=== PATIENT | female | born 1990 | race Caucasian/White ===

== ENCOUNTER 2016-12-03 21:27 | Emergency (ER) | payer BC, MEDICAID ==
[~2016-12-03] VITALS: Ht 160 cm; Wt 116.0 kg
[~2016-12-03 21:27] MED LIST: No Home Medications; TRAZ50TA11 PO; ZOLO50TA PO
[2016-12-03] MEDS ORDERED: PRENCHW PO (21:38)
[2016-12-03 22:52] LABS: BASO # 0.1 10^3/uL (0.0-0.2); BASO % 0.7 % (0.0-1.0); EOS # 0.4 10^3/uL (0.0-0.50); EOS % 3.3 % (0.0-3.0); IMMATURE GRANULOCYTE % 0.4 % (0-0); LYMPH # 2.9 10^3/uL (1.5-6.5); MEAN CORPUSCULAR HEMOGLOBIN 28.6 pg (27.0-33.0); MEAN CORPUSCULAR HGB CONC 32.8 g/dl (32.0-36.5); MEAN CORPUSCULAR VOLUME 87.2 fl (80.0-96.0); MONO # 0.8 10^3/uL (0.0-0.8); MONO % 7.6 % (0.0-5.0); NEUTROPHILS # 6.6 10^3/uL (1.8-7.7); PLATELET COUNT, AUTOMATED 266 10^3/uL (150-450); RED CELL DISTRIBUTION WIDTH 13.7 % (11.5-14.5); WHITE BLOOD COUNT 10.9 10^3/uL (4.0-10.0)
[2016-12-04 00:10] VITALS: BP 152/94
--- NOTE | 2016-12-04 00:20 | REPUSA ---
CLINICAL HISTORY: determination. TECHNIQUE: Transabdominal ultrasound of the pelvis was performed. FINDINGS: Single, live intrauterine gestation. The estimated gestation age is 6 weeks and 3 days based on a pole measurement measuring 6 mm. heart rate was documented 124 beats per minute. No subchorionic hemorrhage is identified. Evaluation of the maternal adnexal and cul-de-sac regions revealed no abnormalities. Estimated gestational age is 6 weeks and 3 days. Estimated delivery date is 07/26/2017. IMPRESSION: Single, live intrauterine gestation.
== END 2016-12-04 00:14 | disposition home or self-care (01) ==
LOC: M ED 21:27
DX: O20.8 Other hemorrhage in early pregnancy (principal); Z3A.01 Less than 8 weeks gestation of pregnancy; Z79.899 Other long term (current) drug therapy

== ENCOUNTER 2018-04-12 22:15 | Emergency (ER) | payer BC, MEDICAID ==
[~2018-04-12] VITALS: Ht 162.6 cm; Wt 104.5 kg
[~2018-04-12 22:15] MED LIST changes: +PRENCHW PO; +TRAZ-160 PO; -TRAZ50TA11 PO
[2018-04-13 02:00] VITALS: BP 139/91
[2018-04-13 02:22] LABS: APPEARANCE, URINE CLEAR (CLEAR); BACTERIA, URINE AUTO NEGATIVE (NEGATIVE); BILIRUBIN, URINE AUTO NEGATIVE (NEGATIVE); BLOOD, URINE BLOOD NEGATIVE (NEGATIVE); COLOR, URINE YELLOW (YELLOW); GLUCOSE, URINE (UA) AUTO NEGATIVE (NEGATIVE); KETONE, URINE AUTO 1+ mg/dL (NEGATIVE); LEUKOCYTE ESTERASE, URINE AUTO NEGATIVE (NEGATIVE); MUCUS, URINE SMALL (NEGATIVE); NITRITE, URINE AUTO NEGATIVE (NEGATIVE); PROTEIN, URINE AUTO NEGATIVE (NEGATIVE); RBC, URINE AUTO 1 /HPF (0-3); SQUAMOUS EPITHELIAL CELL UR AU 0 /HPF (0-6); WBC, URINE AUTO 2 /HPF (0-3)
--- NOTE | 2018-04-13 09:05 | REP ---
PELVIC AND ENDOVAGINAL PROBE ULTRASOUND: 04/12/2018. Clinical history: Pelvic pain. IUD in place. Question displacement. Right-sided pain, possible cyst or other. Findings: Transabdominal and endovaginal probe images were obtained. There are no prior studies. Bladder is minimally filled. Uterus anteverted measuring 7.6 x 4.3 x 7.4 cm. Transabdominal and endovaginal probes show the endometrial stripe with normal thickness. There is an IUD in the endometrial cavity in the body and lower fundus of the uterus. No uterine mass or contour abnormality. The right ovary is 3.8 x 2.7 x 2.6 cm. There is no mass, cyst or adjacent fluid. Doppler tracing shows resistive index of 0.67 and normal color flow visible in that ovary. The left ovary measures 4.1 x 2 x 2.1 cm. There is no mass or cyst visible. There is also normal Doppler blood flow with resistive index of 0.69. Normal color flow as well. Impression: 1. Uterus and ovaries unremarkable. The endometrium shows no abnormality with an IUD visible in the lower fundus and body of the uterus. A portion of the endometrial cavity. 2. Ovaries normal in size and without mass, cyst or adjacent free fluid. Doppler tracing and color flow normal to both ovaries, no torsion. 3. Wet reading provided by Dr. Ayoub of our teleradiology service at the time of the examination. Electronically Signed by Chava Yuen MD 04/13/2018 07:24 P
== END 2018-04-13 02:11 | disposition left against medical advice (07) ==
LOC: M ED 22:15
DX: R10.31 Right lower quadrant pain (principal); F33.9 Major depressive disorder, recurrent, unspecified; F41.9 Anxiety disorder, unspecified; E66.9 Obesity, unspecified; Z97.5 Presence of (intrauterine) contraceptive device

== ENCOUNTER 2018-06-10 21:58 | Emergency (ER) | payer MEDICAID, OTHER ==
[~2018-06-10] VITALS: Ht 160 cm; Wt 102.3 kg
[2018-06-10 21:59] VITALS: BP 139/92
[2018-06-10] MEDS ORDERED: FLUORESCEIN OPHTH 1 MG STRIP OS ONE (22:30)
[2018-06-10] MEDS ORDERED: TETRACAINE 0.5% OPHTH SOLN 4ML OS ONE (22:30)
[2018-06-10] MEDS ORDERED: GENTAMICIN 0.3% OPHTH OINT 3.5 GM OS ONE (22:45)
[2018-06-10] MEDS ORDERED: GENT0.3O15 OS (23:05)
[2018-06-10] MEDS ORDERED: ERYT1OIN26 OS (23:12)
[2018-06-10] MEDS ORDERED: ERYTHROMYCIN OPHTH OINT OS ONE (23:15)
[2018-06-14 12:29] LABS: HEPATITIS B SURFACE ANTIBODY NEGATIVE (POSITIVE); HEPATITIS B SURFACE ANTIGEN NEGATIVE (NEGATIVE)
== END 2018-06-10 23:23 | disposition home or self-care (01) ==
LOC: M ED 21:58
DX: S05.02XA Injury of conjunctiva and corneal abrasion without foreign body, left eye, initial encounter (principal); Y04.8XXA Assault by other bodily force, initial encounter; Y92.199 Unspecified place in other specified residential institution as the place of occurrence of the external cause; Y93.F9 Activity, other caregiving; Y99.0 Civilian activity done for income or pay; F17.210 Nicotine dependence, cigarettes, uncomplicated; Z20.5 Contact with and (suspected) exposure to viral hepatitis

== ENCOUNTER 2018-09-13 16:59 | Emergency (ER) | payer OTHER, SELFPAY ==
[~2018-09-13] VITALS: Ht 160 cm; Wt 104.5 kg
[~2018-09-13 16:59] MED LIST changes: +ERYT1OIN26 OS; +GENT0.3O15 OS; -TRAZ-160 PO; +TRAZ-252 PO
[2018-09-13] MEDS ORDERED: IBUP-1114 PO (17:14)
[2018-09-13] MEDS ORDERED: MACR100C43 PO (19:20)
[2018-09-13] MEDS ORDERED: PYRI1TAB5 PO (19:20)
[2018-09-13 19:21] VITALS: BP 129/80
[2018-09-13] MEDS ORDERED: NITROFURANTOIN (MACROBID) 100 MG CAP PO ONE (19:30)
[2018-09-13] MEDS ORDERED: PHENAZOPYRIDINE 100 MG TAB PO ONE (19:30)
--- NOTE | 2018-09-14 09:27 | REP ---
PELVIC ULTRASOUND: Real-time sonographic evaluation of the pelvis performed utilizing transabdominal and endovaginal technique. The bladder is collapsed and empty. Uterus measures 9.0 x 4.5 x 6.4 cm. Endometrial thickness is approximately 6 mm maximally. IUD is seen in the endometrial canal. There is no endometrial fluid collection. The ovaries are normal in size and echotexture, right ovary measuring 4.1 x 2.2 x 2.4 cm and left ovary 3.4 x 2.7 x 2.1 cm. There is no adnexal mass or free fluid. There is no torsion of either ovary. IMPRESSION: IUD in the endometrial canal. No other abnormality. Preliminary report provided by [facility] at the time of the exam. Electronically Signed by Cong Alvarado MD 09/14/2018 12:42 P
== END 2018-09-13 19:30 | disposition home or self-care (01) ==
LOC: M ED 16:59
DX: N30.00 Acute cystitis without hematuria (principal); R10.32 Left lower quadrant pain; Z97.5 Presence of (intrauterine) contraceptive device

== ENCOUNTER 2018-09-14 08:32 | Emergency (ER) | payer SELFPAY ==
[~2018-09-14] VITALS: Ht 160 cm; Wt 107.6 kg
[~2018-09-14 08:32] MED LIST changes: +IBUP-1114 PO; +MACR100C43 PO; +PYRI1TAB5 PO
[2018-09-14 09:17] LABS: BASO % 0.4 % (0.0-1.0); EOS # 0.2 10^3/uL (0.0-0.50); EOS % 1.8 % (0.0-3.0); HEMATOCRIT 41.5 % (36.0-47.0); HEMOGLOBIN 13.7 g/dl (12.0-15.5); LYMPH # 1.1 10^3/uL (1.5-6.5); LYMPH % 10.4 % (24.0-44.0); MEAN CORPUSCULAR HEMOGLOBIN 29.3 pg (27.0-33.0); MEAN CORPUSCULAR VOLUME 88.9 fl (80.0-96.0); MONO # 0.6 10^3/uL (0.0-0.8); MONO % 5.4 % (0.0-5.0); NEUTROPHILS # 8.9 10^3/uL (1.8-7.7); NEUTROPHILS % 81.7 % (36.0-66.0); PLATELET COUNT, AUTOMATED 203 10^3/uL (150-450); RED BLOOD COUNT 4.67 10^6/uL (4.00-5.40); WHITE BLOOD COUNT 10.9 10^3/uL (4.0-10.0)
[2018-09-14 09:54] LABS: BLOOD UREA NITROGEN 9 MG/DL (7-18); CALCIUM LEVEL 8.9 MG/DL (8.5-10.1); CARBON DIOXIDE LEVEL 26 MEQ/L (21-32); CHLORIDE LEVEL 108 MEQ/L (98-107); CREATININE FOR GFR 0.83 MG/DL (0.55-1.30); GLOMERULAR FILTRATION RATE > 60.0 (>60); GLUCOSE, FASTING 103 MG/DL (70-100); POTASSIUM SERUM 3.9 MEQ/L (3.5-5.1); SODIUM LEVEL 140 MEQ/L (136-145)
--- NOTE | 2018-09-14 10:11 | REP ---
CT ABDOMEN AND PELVIS WITHOUT CONTRAST: CT abdomen and pelvis was performed without oral or IV contrast. Sagittal and coronal reconstruction images are performed. Visualized lung bases are clear. Liver, spleen, adrenals, pancreas and kidneys are grossly unremarkable. There is no renal ureteral or bladder calculus. There is no hydroureteronephrosis. There appear to be gallstones in the gallbladder without definite pericholecystic edema. There is no abdominal aortic aneurysm. There is no adenopathy. There is no free air or free fluid. No bowel wall thickening is seen. There is no evidence of appendicitis. No pelvic mass is seen. IUD is seen in the uterus. IMPRESSION: No evidence of renal, ureteral or bladder calculus. There is no hydroureteronephrosis. No evidence of appendicitis. There appear to be gallstones in the gallbladder without definite gallbladder wall inflammation of pericholecystic edema. IUD is seen in the uterus. Electronically Signed by Cong Alvarado MD 09/14/2018 12:44 P
[2018-09-14 10:29] VITALS: BP 136/93
== END 2018-09-14 10:34 | disposition home or self-care (01) ==
LOC: M ED 08:32
DX: N39.0 Urinary tract infection, site not specified (principal); K80.20 Calculus of gallbladder without cholecystitis without obstruction; Z97.5 Presence of (intrauterine) contraceptive device

== ENCOUNTER → 2020-09-23 | Outpatient (CLI) | payer OTHER ==
[~2020-09-23] MED LIST changes: -ERYT1OIN26 OS; +ERYT5OIN25 OS
== END ==
LOC: M RAD 13:53
PROVIDERS: ATTEND Physician Assistant Medical
DX: Z97.5 Presence of (intrauterine) contraceptive device (principal)

== ENCOUNTER → 2020-11-18 | Outpatient (REF) ==
[2020-11-18 15:19] LABS: RSV AMPLIFICATION NEGATIVE (NEGATIVE)
== END ==
LOC: M EMP 13:21
PROVIDERS: ATTEND Family Medicine
DX: Z20.822 Contact with and (suspected) exposure to COVID-19 (principal)

== ENCOUNTER 2020-11-19 11:19 | Outpatient (CLI) | payer OTHER ==
[~2020-11-19] VITALS: Ht 160 cm; Wt 108.9 kg
[~2020-11-19 11:19] MED LIST changes: +ACETAMINOPHEN TAB 650MG DOSE (2X325MG) PO ONE; +ACETAMINOPHEN TAB 650MG DOSE (2X325MG) PO PRN; +ALBUTEROL 90 MCG/ACT 8GM HFA INHALER INH PRN; +ALBUTEROL SULFATE 2.5 MG/0.5 ML INH NEB SOLN INH PRN; +CASIRIVIMAB/IMDEVIMAB 1,200 MG in NS 250 ML IV ONE; +EPINEPHrine INJ 1 MG/ML 1ML AMP IM PRN; +NS 1,000 ML IV SCH; +diphenhydrAMINE 50MG CAP PO ONE; +diphenhydrAMINE 50MG/ML VIAL (J1200) IV PRN; +methylPREDNISolone 125MG 2ML VIAL IV ONE; +methylPREDNISolone 125MG 2ML VIAL IV PRN
--- NOTE | 2020-11-19 12:01 | IPN ---
PROGRESS NOTE DATE: 11/19/2020 SUBJECTIVE: Yandy tested positive for COVID on 11/18/2020. This was done through [facility]. I was contacted by [facility] as the patient had no primary care provider. I called her, we discussed her diagnosis and offered monoclonal antibodies. We reviewed risks and benefits and potential complications and after a discussion, she consented to receive monoclonal antibody therapy. This was scheduled for today 11/19/2020 at the [facility]fusion [facility]. Orders have been entered into [facility].
[2020-11-19 12:39] VITALS: BP 136/96
[2020-11-19 14:00] VITALS: BP 114/61
[2020-11-19 14:40] VITALS: BP 104/56
[2020-11-19 15:50] VITALS: BP 123/84
== END 2020-11-19 16:05 | disposition home or self-care (01) ==
LOC: M OPCLI4 11:19 → M 4MAIN 11:24 → M OPCLI4 16:05
PROVIDERS: ATTEND Family Medicine
DX: U07.1 COVID-19 (principal)
CPT/HCPCS: 96361; M0243

== ENCOUNTER → 2021-02-17 | Outpatient (REF) ==
[~2021-02-17] MED LIST changes: -ACETAMINOPHEN TAB 650MG DOSE (2X325MG) PO ONE; -ACETAMINOPHEN TAB 650MG DOSE (2X325MG) PO PRN; -ALBUTEROL 90 MCG/ACT 8GM HFA INHALER INH PRN; -ALBUTEROL SULFATE 2.5 MG/0.5 ML INH NEB SOLN INH PRN; -CASIRIVIMAB/IMDEVIMAB 1,200 MG in NS 250 ML IV ONE; -EPINEPHrine INJ 1 MG/ML 1ML AMP IM PRN; -NS 1,000 ML IV SCH; -diphenhydrAMINE 50MG CAP PO ONE; -diphenhydrAMINE 50MG/ML VIAL (J1200) IV PRN; -methylPREDNISolone 125MG 2ML VIAL IV ONE; -methylPREDNISolone 125MG 2ML VIAL IV PRN
== END ==
LOC: M EMP 07:49
PROVIDERS: ATTEND Family Medicine
DX: Z20.822 Contact with and (suspected) exposure to COVID-19 (principal)

== ENCOUNTER 2021-02-18 14:07 | Outpatient (CLI) | payer OTHER ==
[~2021-02-18 14:07] MED LIST changes: +ACETAMINOPHEN TAB 650MG DOSE (2X325MG) PO PRN; +ALBUTEROL 90 MCG/ACT 8GM HFA INHALER INH PRN; +ALBUTEROL SULFATE 2.5 MG/0.5 ML INH NEB SOLN INH PRN; +BAMLANIVIMAB 700 MG, ETESEVIMAB 1,400 MG in NS 250 ML IV ONE; +CASIRIVIMAB/IMDEVIMAB 1,200 MG in NS 250 ML IV ONE; +EPINEPHrine INJ 1 MG/ML 1ML AMP IM PRN; +NS 1,000 ML IV SCH; +diphenhydrAMINE 50MG/ML VIAL (J1200) IV PRN; +methylPREDNISolone 125MG 2ML VIAL IV PRN
[2021-02-18 14:40] VITALS: BP 138/67
[2021-02-18 15:10] VITALS: BP 132/72
[2021-02-18 15:40] VITALS: BP 119/56
[2021-02-18 16:40] VITALS: BP 126/66
== END 2021-02-18 16:40 | disposition home or self-care (01) ==
LOC: M OPCLI4PR 14:07
PROVIDERS: ATTEND Family Medicine
DX: U07.1 COVID-19 (principal)

== ENCOUNTER → 2021-06-11 | Outpatient (CLI) | payer OTHER ==
[~2021-06-11] MED LIST changes: -ACETAMINOPHEN TAB 650MG DOSE (2X325MG) PO PRN; -ALBUTEROL 90 MCG/ACT 8GM HFA INHALER INH PRN; -ALBUTEROL SULFATE 2.5 MG/0.5 ML INH NEB SOLN INH PRN; -BAMLANIVIMAB 700 MG, ETESEVIMAB 1,400 MG in NS 250 ML IV ONE; -CASIRIVIMAB/IMDEVIMAB 1,200 MG in NS 250 ML IV ONE; -EPINEPHrine INJ 1 MG/ML 1ML AMP IM PRN; -NS 1,000 ML IV SCH; -diphenhydrAMINE 50MG/ML VIAL (J1200) IV PRN; -methylPREDNISolone 125MG 2ML VIAL IV PRN
[2021-06-11 10:38] LABS: APPEARANCE, URINE HAZY (CLEAR); BACTERIA, URINE AUTO NEGATIVE (NEGATIVE); BILIRUBIN, URINE AUTO NEGATIVE (NEGATIVE); BLOOD, URINE BLOOD NEGATIVE (NEGATIVE); COLOR, URINE YELLOW (YELLOW); GLUCOSE, URINE (UA) AUTO NEGATIVE (NEGATIVE); KETONE, URINE AUTO NEGATIVE (NEGATIVE); LEUKOCYTE ESTERASE, URINE AUTO NEGATIVE (NEGATIVE); MUCUS, URINE SMALL (NEGATIVE); NITRITE, URINE AUTO NEGATIVE (NEGATIVE); PROTEIN, URINE AUTO NEGATIVE (NEGATIVE); RBC, URINE AUTO 0 /HPF (0-3); SPECIFIC GRAVITY URINE AUTO 1.017 (1.002-1.035); SQUAMOUS EPITHELIAL CELL UR AU 6 /HPF (0-6); TRANSITIONAL EPITHELIAL AUTO 1 /HPF; UROBILINOGEN, URINE AUTO 0.2 mg/dL (0.0-2.0); WBC, URINE AUTO 0 /HPF (0-3)
[2021-06-11 10:40] LABS: BASO # 0.1 10^3/uL (0.0-0.2); BASO % 0.9 % (0.0-1.0); EOS # 0.3 10^3/uL (0.0-0.5); EOS % 4.5 % (0.0-3.0); HEMATOCRIT 42.4 % (36.0-47.0); HEMOGLOBIN 13.6 g/dl (12.0-15.5); LYMPH # 2.1 10^3/uL (1.5-5.0); LYMPH % 28.5 % (24.0-44.0); MEAN CORPUSCULAR HEMOGLOBIN 30.3 pg (27.0-33.0); MEAN CORPUSCULAR HGB CONC 32.1 g/dl (32.0-36.5); MEAN CORPUSCULAR VOLUME 94.4 fl (80.0-96.0); MONO # 0.5 10^3/uL (0.0-0.8); MONO % 6.2 % (2.0-8.0); NEUTROPHILS # 4.4 10^3/uL (1.5-8.5); PLATELET COUNT, AUTOMATED 285 10^3/uL (150-450); RED BLOOD COUNT 4.49 10^6/uL (4.00-5.40); WHITE BLOOD COUNT 7.4 10^3/uL (4.0-10.0)
[2021-06-11 11:12] LABS: ALBUMIN 3.7 GM/DL (3.2-5.2); ALT/SGPT 107 U/L (12-78); BILIRUBIN,TOTAL 0.3 MG/DL (0.2-1.0); BLOOD UREA NITROGEN 15 MG/DL (7-18); CALCIUM LEVEL 9.5 MG/DL (8.5-10.1); CARBON DIOXIDE LEVEL 27 MEQ/L (21-32); CHLORIDE LEVEL 106 MEQ/L (98-107); CHOLESTEROL LEVEL 212 MG/DL (<200); CREATININE FOR GFR 0.74 MG/DL (0.55-1.30); FREE T4 0.71 NG/DL (0.76-1.46); GLOMERULAR FILTRATION RATE > 60.0 (>60); GLUCOSE, FASTING 86 MG/DL (70-100); HDL CHOLESTEROL 47 MG/DL (>40); LDL CHOLESTEROL 133 MG/DL (<100); NON-HDL-C 165 MG/DL; POTASSIUM SERUM 4.8 MEQ/L (3.5-5.1); SODIUM LEVEL 141 MEQ/L (136-145); TOTAL PROTEIN 6.8 GM/DL (6.4-8.2); TRIGLYCERIDES LEVEL 160 MG/DL (<150)
[2021-06-11 11:37] LABS: HEMOGLOBIN A1c 5.2 %
[2021-06-12 21:12] LABS: ANA (HEP2) Negative (.)
== END ==
LOC: M RAD 09:24
PROVIDERS: ATTEND Family Medicine
DX: R07.9 Chest pain, unspecified (principal)

== ENCOUNTER → 2021-11-04 | Outpatient (REF) | LOC: M EMP 09:27 | PROVIDERS: ATTEND Family Medicine | DX: Z20.822 Contact with and (suspected) exposure to COVID-19 (principal); Z11.52 Encounter for screening for COVID-19 ==

== ENCOUNTER → 2021-12-02 | Outpatient (REF) | LOC: M EMP 11:14 | PROVIDERS: ATTEND Family Medicine | DX: Z20.822 Contact with and (suspected) exposure to COVID-19 (principal) ==

== ENCOUNTER → 2021-12-09 | Outpatient (REF) | LOC: M EMP 09:34 | PROVIDERS: ATTEND Family Medicine | DX: Z20.822 Contact with and (suspected) exposure to COVID-19 (principal) ==

== ENCOUNTER → 2022-01-03 | Outpatient (REF) ==
[2022-01-03 10:59] LABS: RSV AMPLIFICATION NEGATIVE (NEGATIVE)
== END ==
LOC: M LABSMTC 08:58
PROVIDERS: ATTEND Family Medicine
DX: Z11.52 Encounter for screening for COVID-19 (principal)

== ENCOUNTER → 2022-04-12 | Outpatient (REF) | LOC: M LABSMTC 10:12 | PROVIDERS: ATTEND Family Medicine | DX: Z11.52 Encounter for screening for COVID-19 (principal) ==

== ENCOUNTER 2022-11-25 20:03 | Emergency (ER) | payer OTHER ==
[~2022-11-25] VITALS: Ht 160 cm; Wt 134.8 kg
[2022-11-25 22:27] LABS: BASO # 0.1 10^3/uL (0.0-0.2); BASO % 1.2 % (0.0-1.0); EOS # 0.1 10^3/uL (0.0-0.5); HEMATOCRIT 40.2 % (36.0-47.0); HEMOGLOBIN 13.1 g/dl (12.0-15.5); LYMPH # 1.6 10^3/uL (1.5-5.0); LYMPH % 27.1 % (24.0-44.0); MEAN CORPUSCULAR HEMOGLOBIN 29.8 pg (27.0-33.0); MEAN CORPUSCULAR HGB CONC 32.6 g/dl (32.0-36.5); MEAN CORPUSCULAR VOLUME 91.4 fl (80.0-96.0); MONO # 0.6 10^3/uL (0.0-0.8); MONO % 10.8 % (2.0-8.0); NEUTROPHILS # 3.5 10^3/uL (1.5-8.5); NEUTROPHILS % 58.2 % (36.0-66.0); PLATELET COUNT, AUTOMATED 243 10^3/uL (150-450); WHITE BLOOD COUNT 5.9 10^3/uL (4.0-10.0)
[2022-11-25 22:40] VITALS: BP 162/90; TEMP 97.7; O2SAT 100
[2022-11-25 23:04] LABS: LIPASE 27 U/L (12-53)
[2022-11-25 23:05] LABS: HCG, SERUM QUALITATIVE NEGATIVE (NEGATIVE)
[2022-11-25 23:06] LABS: ALBUMIN 3.6 G/DL (3.2-5.2); ALKALINE PHOSPHATASE 91 U/L (46-116); ALT/SGPT 74 U/L (7.0-40); AST/SGOT 33 U/L (<34); BILIRUBIN,DIRECT 0.1 MG/DL (<0.4); BILIRUBIN,TOTAL 0.4 MG/DL (0.3-1.2); BLOOD UREA NITROGEN 12 MG/DL (9-23); CALCIUM LEVEL 8.9 MG/DL (8.5-10.1); CARBON DIOXIDE LEVEL 27 MMOL/L (20-31); CHLORIDE LEVEL 106 MMOL/L (98-107); CREATININE FOR GFR 0.91 MG/DL (0.55-1.30); GLOMERULAR FILTRATION RATE > 60.0 (>60); GLUCOSE, FASTING 88 MG/DL (60-100); POTASSIUM SERUM 4.3 MMOL/L (3.5-5.1); SODIUM LEVEL 139 MMOL/L (136-145); TOTAL PROTEIN 6.7 G/DL (5.7-8.2)
== END 2022-11-26 00:29 | disposition left against medical advice (07) ==
LOC: M ED 20:03
DX: Z53.21 Procedure and treatment not carried out due to patient leaving prior to being seen by health care provider (principal)

== ENCOUNTER 2023-05-18 10:07 | Inpatient (IN) | payer OTHER ==
[~2023-05-18] VITALS: Ht 160 cm; Wt 138.1 kg
[2023-05-18] MEDS: LR 1,000 ML IV SCH (01:00)
[2023-05-18 11:22] LABS: BASO # 0.1 10^3/uL (0.0-0.2); BASO % 1.1 % (0.0-1.0); EOS # 0.2 10^3/uL (0.0-0.5); EOS % 2.5 % (0.0-3.0); HEMATOCRIT 39.5 % (36.0-47.0); HEMOGLOBIN 13.1 g/dl (12.0-15.5); LYMPH # 2.1 10^3/uL (1.5-5.0); LYMPH % 24.1 % (24.0-44.0); MEAN CORPUSCULAR HEMOGLOBIN 30.1 pg (27.0-33.0); MEAN CORPUSCULAR HGB CONC 33.2 g/dl (32.0-36.5); MEAN CORPUSCULAR VOLUME 90.8 fl (80.0-96.0); MONO # 0.5 10^3/uL (0.0-0.8); MONO % 5.7 % (2.0-8.0); NEUTROPHILS # 5.9 10^3/uL (1.5-8.5); NEUTROPHILS % 66.1 % (36.0-66.0); PLATELET COUNT, AUTOMATED 292 10^3/uL (150-450); RED BLOOD COUNT 4.35 10^6/uL (4.00-5.40); WHITE BLOOD COUNT 8.8 10^3/uL (4.0-10.0)
[2023-05-18 11:44] LABS: LIPASE 28 U/L (12-53)
[2023-05-18 11:46] LABS: ALBUMIN 3.8 G/DL (3.2-5.2); ALKALINE PHOSPHATASE 86 U/L (46-116); ALT/SGPT 52 U/L (7.0-40); AST/SGOT 26 U/L (<34); BILIRUBIN,DIRECT 0.1 MG/DL (<0.4); BILIRUBIN,TOTAL 0.4 MG/DL (0.3-1.2); BLOOD UREA NITROGEN 13 MG/DL (9-23); CALCIUM LEVEL 9.3 MG/DL (8.5-10.1); CARBON DIOXIDE LEVEL 27 MMOL/L (20-31); CHLORIDE LEVEL 104 MMOL/L (98-107); CREATININE FOR GFR 0.87 MG/DL (0.55-1.30); GLOMERULAR FILTRATION RATE > 60.0 (>60); GLUCOSE, FASTING 88 MG/DL (60-100); POTASSIUM SERUM 4.6 MMOL/L (3.5-5.1); SODIUM LEVEL 139 MMOL/L (136-145); TOTAL PROTEIN 6.7 G/DL (5.7-8.2)
[2023-05-18] MEDS ORDERED: LOSA50TA28 (12:26)
[2023-05-18] MEDS ORDERED: IBUP-1022 (12:26)
[2023-05-18] MEDS ORDERED: SPIR50TA4 (12:26)
[2023-05-18] MEDS ORDERED: ISOVUE-370 76% 100ML VIAL As Ordered ONE (14:29)
[2023-05-18] MEDS: KETOROLAC 30 MG/ML 1ML VIAL IV ONE (19:05)
[2023-05-18] MEDS ORDERED: HYDROMORPHONE HCL 0.5 MG/ 0.5 ML SYRINGE IV PRN (20:25)
[2023-05-18] MEDS ORDERED: fentaNYL 100 MCG/2 ML INJECTION As Ordered ONE (20:35)
[2023-05-18] MEDS ORDERED: propofoL 200 MG/20 ML VIAL As Ordered ONE (20:35)
[2023-05-18] MEDS ORDERED: ROCURONIUM BROMIDE 50MG/5ML VIAL As Ordered ONE (20:35)
[2023-05-18] MEDS ORDERED: SUGAMMADEX SODIUM 500 MG/5 ML VIAL (BRIDION) As Ordered ONE (20:35)
[2023-05-18] MEDS ORDERED: LIDOCAINE 2% 100MG/5ML SDV (FOR ANES.) As Ordered ONE (20:35)
[2023-05-18] MEDS ORDERED: MIDAZOLAM INJ 2MG/2ML VIAL As Ordered ONE (20:35)
[2023-05-18] MEDS ORDERED: ONDANSETRON 4MG 2ML VIAL As Ordered ONE (20:36)
[2023-05-18] MEDS ORDERED: ACETAMINOPHEN 1000MG 100ML IV BAG As Ordered ONE (20:36)
[2023-05-18] MEDS: INDOCYANINE GREEN 25MG VIAL (IC-GREEN) As Ordered ONE (21:30)
[2023-05-18] MEDS: ceFAZolin 1GM VIAL As Ordered ONE (21:57)
[2023-05-18] MEDS ORDERED: HYDROmorphone HCL 2MG/ML 1ML VIAL As Ordered ONE (22:07)
[2023-05-18] MEDS ORDERED: fentaNYL 100 MCG/2 ML INJECTION IV PRN (23:35)
[2023-05-18] MEDS ORDERED: LR 1,000 ML IV SCH (23:35)
[2023-05-18] MEDS: ONDANSETRON 4MG 2ML VIAL IV PRN (23:51)
[2023-05-18] MEDS: HYDROMORPHONE HCL 0.5 MG/ 0.5 ML SYRINGE IV PRN (23:51)
[2023-05-18] MEDS: oxyCODONE 5MG TAB PO PRN (23:52)
[2023-05-19] VITALS (10 sets, daily range): BP systolic 96–155; BP diastolic 54–99; TEMP 96.2–97.8; O2SAT 94–98
[2023-05-19] MEDS: LABETALOL 100MG/20ML VIAL IV STA (00:14)
[2023-05-19] MEDS ORDERED: LOSA50TA28 PO (00:36)
[2023-05-19] MEDS ORDERED: ESTA0.25 PO (00:36)
[2023-05-19] MEDS ORDERED: IBUP-1730 PO (00:36)
[2023-05-19] MEDS ORDERED: SPIR50TA4 PO (00:36)
[2023-05-19] MEDS ORDERED: HOME MED LIST COMPLETE! XX SCH (00:40)
[2023-05-19] MEDS: PERCOCET 5MG/325MG TAB PO PRN (05:06)
[2023-05-19 06:56] LABS: BASO % 0.4 % (0.0-1.0); EOS % 0.1 % (0.0-3.0); HEMATOCRIT 37.5 % (36.0-47.0); HEMOGLOBIN 12.3 g/dl (12.0-15.5); LYMPH # 1.3 10^3/uL (1.5-5.0); LYMPH % 11.9 % (24.0-44.0); MEAN CORPUSCULAR HEMOGLOBIN 30.1 pg (27.0-33.0); MEAN CORPUSCULAR HGB CONC 32.8 g/dl (32.0-36.5); MEAN CORPUSCULAR VOLUME 91.7 fl (80.0-96.0); MONO # 0.2 10^3/uL (0.0-0.8); MONO % 2.1 % (2.0-8.0); NEUTROPHILS # 9.6 10^3/uL (1.5-8.5); NEUTROPHILS % 85.1 % (36.0-66.0); PLATELET COUNT, AUTOMATED 286 10^3/uL (150-450); RED BLOOD COUNT 4.09 10^6/uL (4.00-5.40); WHITE BLOOD COUNT 11.3 10^3/uL (4.0-10.0)
[2023-05-19 07:32] LABS: ALBUMIN 3.4 G/DL (3.2-5.2); ALKALINE PHOSPHATASE 81 U/L (46-116); ALT/SGPT 62 U/L (7.0-40); AST/SGOT 45 U/L (<34); BILIRUBIN,TOTAL 0.4 MG/DL (0.3-1.2); BLOOD UREA NITROGEN 13 MG/DL (9-23); CALCIUM LEVEL 8.7 MG/DL (8.5-10.1); CARBON DIOXIDE LEVEL 25 MMOL/L (20-31); CHLORIDE LEVEL 104 MMOL/L (98-107); CREATININE FOR GFR 0.85 MG/DL (0.55-1.30); GLOMERULAR FILTRATION RATE > 60.0 (>60); GLUCOSE, FASTING 147 MG/DL (60-100); SODIUM LEVEL 136 MMOL/L (136-145); TOTAL PROTEIN 6.3 G/DL (5.7-8.2)
[2023-05-19] MEDS: HEPARIN SOD (PORCINE) 5000UNITS/ML 1ML VIAL/SYRINGE SC SCH (12:06)
[2023-05-19] MEDS ORDERED: PERCOCET PO (13:56)
== END 2023-05-19 16:13 | disposition home or self-care (01) | DRG 263 ==
LOC: M ED 12:33 → M SDC 20:33 → M ED INP 20:40 → ENRESERV 22:50 → M PED 05-19 00:30
PROVIDERS: ADMIT Internal Medicine; ATTEND Internal Medicine
PROC: 8E0W4CZ Robotic Assisted Procedure of Trunk Region, Percutaneous Endoscopic Approach (ICD-10-PCS; 2023-05-18)
PROC: 0FT44ZZ Resection of Gallbladder, Percutaneous Endoscopic Approach (ICD-10-PCS; principal; 2023-05-18 22:00)
DX: K81.2 Acute cholecystitis with chronic cholecystitis (principal); I10 Essential (primary) hypertension; E66.01 Morbid (severe) obesity due to excess calories; Z79.899 Other long term (current) drug therapy; Z11.52 Encounter for screening for COVID-19

== ENCOUNTER → 2023-08-01 | Outpatient (REF) | payer OTHER, MEDICAID ==
[~2023-08-01] MED LIST changes: +ESTA0.25 PO; +IBUP-1022; +IBUP-1730 PO; +LOSA50TA28; +LOSA50TA28 PO; +PERCOCET PO; +SPIR50TA4; +SPIR50TA4 PO
== END ==
LOC: M LAB REF 12:37
PROVIDERS: ATTEND Physician Assistant
DX: J02.9 Acute pharyngitis, unspecified (principal)

== ENCOUNTER → 2023-08-01 | Outpatient (REF) | LOC: M EMP 10:14 | PROVIDERS: ATTEND Family Medicine | DX: Z11.52 Encounter for screening for COVID-19 (principal) ==

== ENCOUNTER → 2023-12-08 | Outpatient (REF) | LOC: M EMP 10:29 | PROVIDERS: ATTEND Family Medicine | DX: Z20.822 Contact with and (suspected) exposure to COVID-19 (principal) ==

== ENCOUNTER → 2023-12-13 | Outpatient (REF) | LOC: M EMP 14:31 | PROVIDERS: ATTEND Family Medicine | DX: Z01.89 Encounter for other specified special examinations (principal) ==

== ENCOUNTER → 2023-12-14 | Outpatient (REF) | payer OTHER, MEDICAID | LOC: M LAB REF 13:15 | PROVIDERS: ATTEND Physician Assistant | DX: B34.9 Viral infection, unspecified (principal) ==

== ENCOUNTER 2024-11-01 01:28 | Emergency (ER) | payer OTHER ==
[~2024-11-01] VITALS: Ht 157.5 cm; Wt 126.3 kg
[~2024-11-01 01:28] MED LIST changes: -IBUP-1022; +IBUP600T42
[2024-11-01 01:32] VITALS: BP 158/84; TEMP 97.1; O2SAT 100
== END 2024-11-01 04:01 | disposition left against medical advice (07) ==
LOC: M ED 01:28
DX: Z53.21 Procedure and treatment not carried out due to patient leaving prior to being seen by health care provider (principal)